=== PATIENT | female | born 1990 | race Caucasian/White ===

== ENCOUNTER 2019-02-08 05:18 | Inpatient (IN) | payer OTHER ==
[2019-02-08] MEDS ORDERED: Docusate 100 MG CAP PO PRN (05:20)
[2019-02-08] MEDS ORDERED: hydrALAZINE 20 MG/ML VIAL SLOW IVP PRN ×3 (05:20→22:41)
[2019-02-08] MEDS ORDERED: Misoprostol 200 MCG TAB PR PRN (05:20)
[2019-02-08] MEDS ORDERED: HYDROcodone/Acetaminophen 5/325 mg Tablet PO PRN ×2 (05:20)
[2019-02-08] MEDS ORDERED: Diphenoxylate HCl/Atropine Tablet PO PRN ×2 (05:20)
[2019-02-08] MEDS ORDERED: Butorphanol Tartrate 1 MG/ML VIAL SLOW IVP PRN (05:20)
[2019-02-08] MEDS ORDERED: Promethazine HCl 25 MG/ML VIAL IM PRN ×2 (05:20→11:45)
[2019-02-08] MEDS ORDERED: NS w/ Oxytocin 10 units 500 ML IV SCH ×2 (05:20)
[2019-02-08] MEDS ORDERED: NS / Oxytocin 40 units/1000ml 1,000 ML IV PRN (05:20)
[2019-02-08] MEDS ORDERED: Lidocaine 1% (PF) 30 ML VIAL SC PRN (05:20)
[2019-02-08] MEDS ORDERED: Ibuprofen 800 MG TAB PO PRN (05:20)
[2019-02-08] MEDS ORDERED: Acetaminophen 500 MG TAB PO PRN (05:20)
[2019-02-08] MEDS ORDERED: Penicillin G Potassium 5 MILL.UNITS in Sodium Chloride 0.9% 100 ML IVPB SCH (05:45)
[2019-02-08 05:50] VITALS: BMI 36.6
[2019-02-08] MEDS: Lactated Ringer's 1,000 ML IV SCH ×2 (05:55→11:27)
[2019-02-08 06:27] LABS: Hemoglobin 6.8 g/dL (12.0-16.0); Mean Corpuscular HGB CONC 34.8 g/dL (32.0-36.0); Mean Corpuscular Hemoglobin 30.7 pg (27.0-31.0); Mean Corpuscular Volume 88.2 fL (78.0-98.0); Mean Platelet Volume 7.6 fL (7.4-10.4); Platelet Count 338 thou/uL (130-400); RBC Distribution Width 12.4 % (11.5-14.5); Red Blood Cell (RBC) Count 2.22 mill/uL (4.20-5.40)
[2019-02-08 07:06] LABS: Syphilis Antibody Nonreactive (Nonreactive); Syphilis Antibody Index 0.05 S/CO (<1.00 Non-Reactive)
[2019-02-08 07:16] LABS: HBSAg Index 0.12 S/CO (0-0.99); Hep B Surf Ag Non-Reactive S/CO (NonReactive)
[2019-02-08] MEDS: Ondansetron PF 4 MG/2 ML Vial IVP PRN ×2 (07:44→16:13)
[2019-02-08] MEDS ORDERED: Fentanyl 4 mcg/Bup 0.1% Cadd 100 ML ONE (09:01)
[2019-02-08] MEDS: Penicillin G 2.5 MILL.units 2.5 MILL.UNITS in Premix Bag 1 BAG IVPB SCH ×3 (10:33→23:59)
[2019-02-08] MEDS ORDERED: Bupivacaine/Epinephrine 0.25% 30 ML VIAL ONE (11:11)
[2019-02-08] MEDS ORDERED: Ondansetron PF 4 MG/2 ML Vial IVP PRN ×3 (11:45→22:44)
[2019-02-08] MEDS ORDERED: Communication Order-Pharmacy FS SCH (11:45)
[2019-02-08] MEDS ORDERED: diphenhydrAMINE 50 MG/ML VIAL IVP PRN (11:45)
[2019-02-08] MEDS ORDERED: ePHEDrine/0.9% NaCl/PF SYRINGE 50 mg/10 ml SLOW IVP PRN (11:45)
[2019-02-08] MEDS ORDERED: Naloxone HCl 0.4 mg/ml Vial IVP PRN ×2 (11:45)
[2019-02-08] MEDS ORDERED: Lactated Ringer's 500 ML IV PRN (11:45)
[2019-02-08] MEDS ORDERED: Fentanyl 4 mcg/Bupivacaine 0.1% Cassette 100 ML EPIDURAL SCH (11:45)
[2019-02-08] MEDS ORDERED: Acetaminophen 325 MG TAB PO PRN (11:45)
[2019-02-08] MEDS ORDERED: Benzocaine-Menthol 82.5 ML CAN TOP PRN ×2 (18:01→22:41)
[2019-02-08] MEDS ORDERED: Zolpidem Tartrate 5 MG TAB PO PRN ×2 (18:01→19:10)
[2019-02-08] MEDS ORDERED: Misoprostol 200 MCG TAB VAG PRN ×2 (18:01→22:44)
[2019-02-08] MEDS ORDERED: Preparation H Ointment 28 GM TUBE PR PRN ×2 (18:01→22:45)
[2019-02-08] MEDS ORDERED: diphenhydrAMINE 25 MG CAP PO PRN ×2 (18:01→22:41)
[2019-02-08] MEDS ORDERED: Lanolin Ointment 7 GM TUBE TOP PRN ×2 (18:01→22:42)
[2019-02-08] MEDS ORDERED: Bisacodyl 10 MG SUPP PR PRN ×2 (18:01→22:41)
[2019-02-08] MEDS ORDERED: Milk Of Magnesia 30 ML UDCUP PO PRN ×2 (18:01→22:42)
[2019-02-08] MEDS ORDERED: Acetaminophen/Codeine 30-300mg Tablet PO PRN ×3 (18:01→22:46)
[2019-02-08] MEDS ORDERED: NS / Oxytocin 40 units/1000ml 1,000 ML IV SCH ×2 (18:15→22:45)
[2019-02-08] MEDS ORDERED: Docusate Calcium (SURFAK) 240 MG CAP PO SCH ×2 (21:00→23:00)
[2019-02-08] MEDS ORDERED: NS / Oxytocin 40 units/1000ml 1,000 ML ONE (21:45)
[2019-02-08] MEDS ORDERED: Ibuprofen 800 MG TAB PO SCH ×2 (22:00→23:00)
[2019-02-08] MEDS: Ibuprofen 800 MG TAB PO SCH (22:53)
[2019-02-08] MEDS: Acetaminophen/Codeine 30-300mg Tablet PO PRN (22:54)
[2019-02-09] MEDS: Lactated Ringer's 1,000 ML IV SCH
[2019-02-09] MEDS: Penicillin G 2.5 MILL.units 2.5 MILL.UNITS in Premix Bag 1 BAG IVPB SCH
[2019-02-09] MEDS: Ibuprofen 800 MG TAB PO SCH ×2 (05:54→14:25)
[2019-02-09] MEDS ORDERED: Ferrous Sulfate 325 MG TAB PO SCH (08:00)
[2019-02-09 08:07] LABS: Hemoglobin 11.2 g/dL (12.0-16.0)
[2019-02-09] MEDS: Ferrous Sulfate 325 MG TAB PO SCH ×2 (08:15→15:51)
[2019-02-09] MEDS ORDERED: Docusate Calcium (SURFAK) 240 MG CAP PO SCH (09:00)
[2019-02-09] MEDS ORDERED: Adacel (T-DAP) 0.5 ML SYRINGE IM ONE ×2 (09:00→18:01)
[2019-02-09] MEDS ORDERED: Prenatal Vitamin 1 TAB PO SCH ×2 (09:00)
[2019-02-09 16:07] VITALS: BP 110/60; TEMP 98.4
[2019-02-09] MEDS: Acetaminophen/Codeine 30-300mg Tablet PO PRN (17:11)
== END 2019-02-09 19:34 | disposition home or self-care (01) | DRG 807 ==
LOC: UNDOADMIN 05:18 → L&D 05:18 → 3SW 21:43 → EDSTATUS 03-01 09:33
PROVIDERS: ADMIT Obstetrics & Gynecology; ATTEND Obstetrics & Gynecology
PROC: 10907ZC Drainage of Amniotic Fluid, Therapeutic from Products of Conception, Via Natural or Artificial Opening (ICD-10-PCS; principal; 2019-02-08)
PROC: 10E0XZZ Delivery of Products of Conception, External Approach (ICD-10-PCS; 2019-02-08)
PROC: 3E033VJ Introduction of Other Hormone into Peripheral Vein, Percutaneous Approach (ICD-10-PCS; 2019-02-08)
PROC: 0KQM0ZZ Repair Perineum Muscle, Open Approach (ICD-10-PCS; 2019-02-08)
DX: O24.429 Gestational diabetes mellitus in childbirth, unspecified control (principal); Z37.0 Single live birth; O99.824 Streptococcus B carrier state complicating childbirth; O70.1 Second degree perineal laceration during delivery; Z3A.39 39 weeks gestation of pregnancy
CPT/HCPCS: 36415; 51702; 85014; 85018; 85027; 86780; 86850; 86900; 86901; 87340; J2001; J2405; J2540; J2590; J3490